=== PATIENT | male | born 1975 | race Caucasian/White ===

== ENCOUNTER 2016-12-22 21:29 | Emergency (ER) | payer SELFPAY ==
[2016-12-22 21:39] VITALS: BP 142/83; PULSE 100; RESP 20; TEMP 98.2; O2SAT 95
[2016-12-22] MEDS ORDERED: Albuterol-Ipratrop 3 mg / 0.5 (3 ml) UD INH STA ×2 (22:08)
--- NOTE | 2016-12-22 23:15 | ED PDOC ---
HPI: CCC, URI, Sore Throat Time Seen by Provider: 12/22/16 22:00 Chief Complaint (Nursing): Respiratory Distress Chief Complaint (Provider): cough History Per: Patient History/Exam Limitations: no limitations Have you had recent travel within the past 21 days to any of the following countries: [place], [place], [place] or [place]?: No Onset/Duration Of Symptoms: Days (3) Current Symptoms Are (Timing): Still Present Additional Complaint(s): 41yo male presents to the ED with c/o cough x3 days with associated chest tightness. Patient states he has pain in his chest when coughing and it keeps him up at night. Started on z-aneta today with no improvement of symptoms. Patient also has been using inhaler with no relief. Past Medical History Reviewed: Historical Data, Nursing Documentation, Vital Signs Vital Signs: Last Vital Signs Temp 98.2 F 12/22/16 21:36 Pulse 100 H 12/22/16 21:36 Resp 20 12/22/16 21:36 BP 142/83 12/22/16 21:36 Pulse Ox 95 12/23/16 00:31 - Medical History PMH: No Chronic Diseases - Surgical History Surgical History: No Surg Hx - Family History Family History: States: No Known Family Hx - Home Medications Home Medications: Ambulatory Orders Medication Instructions Recorded Dicyclomine [Bentyl] 10 mg PO QID PRN #20 cap 10/09/14 traMADol [Ultram] 50 mg PO QID PRN #20 tab 10/09/14 Guaifenesin [Mucus ER] 600 mg PO BID #16 tab.er.12h 12/23/16 predniSONE [predniSONE Tab] 60 mg PO DAILY #9 tab 12/23/16 - Allergies Allergies/Adverse Reactions: Allergies Allergy/AdvReac Type Severity Reaction Status Date / Time No Known Allergies Allergy Verified 10/09/14 17:20 Review of Systems ROS Statement: Except As Marked, All Systems Reviewed And Found Negative Cardiovascular: Positive for: Other (chest tightness ) Respiratory: Positive for: Cough Physical Exam - Reviewed Nursing Documentation Reviewed: Yes Vital Signs Reviewed: Yes - Physical Exam Appears: Positive for: Well, No Acute Distress Head Exam: Positive for: ATRAUMATIC, NORMAL INSPECTION, NORMOCEPHALIC Skin: Positive for: Normal Color, Warm, Dry Eye Exam: Positive for: Normal appearance, EOMI, PERRL ENT: Positive for: Normal ENT Inspection Neck: Positive for: Normal, Painless ROM, Supple Cardiovascular/Chest: Positive for: Regular Rate, Rhythm. Negative for: Murmur , Tachycardia Respiratory: Positive for: Normal Breath Sounds. Negative for: Wheezing, Respiratory Distress Gastrointestinal/Abdominal: Positive for: Normal Exam, Bowel Sounds, Soft. Negative for: Tenderness Back: Positive for: Normal Inspection. Negative for: L CVA Tenderness, R CVA Tenderness Extremity: Positive for: Normal ROM. Negative for: Deformity, Swelling Neurologic/Psych: Positive for: Alert, Oriented. Negative for: Motor/Sensory Deficits - ECG O2 Sat by Pulse Oximetry: 95 Pulse Ox Interpretation: Normal (RA) Medical Decision Making Medical Decision Makin: Impression: bronchospasm vs. pneumonia Plan: CXR duoneb 3ml INH x2, flexeril 10mg PO, motrin 600mg PO, prednisone 60mg PO reassess 0030: Patient feeling better and cough has improved. Will d/c at this time. Scribe Attestation: Documented by Nigel Wells acting as a scribe for Spencer Amador MD. Provider Scribe Attestation: All medical record entries made by the Scribe were at my direction and personally dictated by me. I have reviewed the chart and agree that the record accurately reflects my personal performance of the history, physical exam, medical decision making, and the department course for this patient. I have also personally directed, reviewed, and agree with the discharge instructions and disposition. Disposition - Clinical Impression Clinical Impression: Bronchospasm - Patient ED Disposition Is Patient to be Admitted: No - Disposition Referrals: [facility] [Outside] Disposition: Routine/Home Disposition Time: 00:31 Condition: IMPROVED Prescriptions: Guaifenesin [Mucus ER] 600 mg PO BID #16 tab.er.12h predniSONE [predniSONE Tab] 60 mg PO DAILY #9 tab Instructions: Acute Cough (ED) Print Language: MARTINIQUAIS
--- NOTE | 2016-12-23 10:33 | RAD ---
HISTORY: r/o PNA COMPARISON: No prior. FINDINGS: LUNGS: No active pulmonary disease. PLEURA: No significant pleural effusion identified, no pneumothorax apparent. CARDIOVASCULAR: No radiographic findings to suggest acute or significant cardiovascular disease. OSSEOUS STRUCTURES: No significant abnormalities. VISUALIZED UPPER ABDOMEN: Normal. OTHER FINDINGS: None. IMPRESSION: No active disease.
== END 2016-12-23 00:52 | disposition home or self-care (01) ==
LOC: H.ER 21:29
DX: J98.01 Acute bronchospasm (principal); R07.9 Chest pain, unspecified; R05 Cough

== ENCOUNTER 2017-12-14 17:35 | Emergency (ER) | payer SELFPAY ==
[2017-12-14 17:50] VITALS: O2SAT 99
[2017-12-14] MEDS ORDERED: Iohexol 240 (50 ml) PO ONE (18:24)
[2017-12-14] MEDS ORDERED: Sodium Chloride 0.9% 1,000 ML IV STA (18:24)
--- NOTE | 2017-12-14 18:25 | ED PDOC ---
HPI: Abdomen Time Seen by Provider: 12/14/17 18:00 Chief Complaint (Nursing): Abdominal Pain Chief Complaint (Provider): Abd pain History Per: Patient History/Exam Limitations: no limitations Onset/Duration Of Symptoms: Days (1 week) Current Symptoms Are (Timing): Still Present Additional Complaint(s): Pt. with abd pain left lower. Constant. No dysuria, weakness, testicular pain , nausea, vomit, diarrhea, new food or drinks. No back pain. Past Medical History Reviewed: Nursing Documentation, Vital Signs Vital Signs: Last Vital Signs Temp 97.8 F 12/14/17 17:46 Pulse 66 12/14/17 17:46 Resp 18 12/14/17 17:46 BP 135/63 12/14/17 17:46 Pulse Ox 99 12/14/17 18:46 - Medical History PMH: Asthma - Surgical History Surgical History: No Surg Hx - Family History Family History: States: Unknown Family Hx - Home Medications Home Medications: Ambulatory Orders Medication Instructions Recorded Dicyclomine [Bentyl] 10 mg PO QID PRN #20 cap 10/09/14 traMADol [Ultram] 50 mg PO QID PRN #20 tab 10/09/14 Guaifenesin [Mucus ER] 600 mg PO BID #16 tab.er.12h 12/23/16 predniSONE [predniSONE Tab] 60 mg PO DAILY #9 tab 12/23/16 Ibuprofen [Motrin] 600 mg PO TID 7 Days tab 12/14/17 - Allergies Allergies/Adverse Reactions: Allergies Allergy/AdvReac Type Severity Reaction Status Date / Time No Known Allergies Allergy Verified 10/09/14 17:20 Review of Systems ROS Statement: Except As Marked, All Systems Reviewed And Found Negative Gastrointestinal: Positive for: Abdominal Pain Physical Exam - Reviewed Nursing Documentation Reviewed: Yes - Physical Exam Appears: Positive for: Non-toxic, No Acute Distress Head Exam: Positive for: ATRAUMATIC, NORMAL INSPECTION, NORMOCEPHALIC Skin: Positive for: Normal Color, Warm, DRY Eye Exam: Positive for: EOMI, Normal appearance, PERRL ENT: Positive for: Normal ENT Inspection Neck: Positive for: Normal, Painless ROM Cardiovascular/Chest: Positive for: Regular Rate, Rhythm Respiratory: Positive for: CNT, Normal Breath Sounds Gastrointestinal/Abdominal: Positive for: Soft, Tenderness (LLQ) Back: Positive for: Normal Inspection. Negative for: L CVA Tenderness, R CVA Tenderness Extremity: Positive for: Normal ROM Neurologic/Psych: Positive for: Alert, Oriented - Laboratory Results Result Diagrams: 12/14/17 18:55 12/14/17 18:55 Interpretation Of Abn Labs: no acute - ECG O2 Sat by Pulse Oximetry: 99 - CT Scan/US ct Other Rad Studies (CT/US): Read By Radiologist Other Rad Interpretation: no acute - Progress ED Course And Treament: 2221: Stable. AAOx3. Pain free. Tolerated po. Fu with pcp. Disposition - Clinical Impression Clinical Impression: Abdominal pain, Diverticulosis - Patient ED Disposition Is Patient to be Admitted: No Counseled Patient/Family Regarding: Studies Performed, Diagnosis, Need For Followup, Rx Given - Disposition [facility]errals: [facility] [Outside] - 12/15/17 Disposition: Routine/Home Disposition Time: 22:22 Condition: STABLE Additional Instructions: Return if not better in 3 days. Prescriptions: Ibuprofen [Motrin] 600 mg PO TID 7 Days tab Instructions: Acute Abdomen (Belly Pain), Diverticulosis Print Language: SLOVENIAN
[2017-12-14] MEDS ORDERED: Iohexol 240 (50 ml) ONE (18:32)
[2017-12-14 19:07] LABS: BASO % 0.6 % (0.0-2.0); EOS # 0.3 K/uL (0.0-0.7); EOS % 3.9 % (0.0-4.0); HEMOGLOBIN 15.2 g/dL (12.0-18.0); LYMPH # 2.6 K/uL (1.0-4.3); LYMPH % 34.6 % (20.0-40.0); MEAN CORPUSCULAR HEMOGLOBIN 28.7 pg (27.0-31.0); MEAN CORPUSCULAR HGB CONC 33.4 g/dL (33.0-37.0); MEAN PLATELET VOLUME 11.4 fl (7.2-11.7); MONO # 0.6 K/uL (0.0-0.8); MONO % 7.5 % (0.0-10.0); NEUT % 53.4 % (50.0-75.0); NRBC % 0.2 % (0.0-0.0); RBC 5.28 Mil/uL (4.40-5.90); RED CELL DISTRIBUTION WIDTH 14.2 % (11.5-14.5); WHITE BLOOD COUNT 7.4 K/uL (4.8-10.8)
[2017-12-14 19:17] LABS: ALB/GLOB RATIO 1.1 (1.0-2.1); ALBUMIN 4.4 g/dL (3.5-5.0); ALT/SGPT 50 U/L (21-72); AST/SGOT 32 U/L (17-59); BLOOD UREA NITROGEN 23 mg/dl (9-20); CALCIUM 9.3 mg/dL (8.4-10.2); GFR AFRICAN-AMERICAN > 60; GFR NON-AFRICAN AMERICAN > 60
[2017-12-14] MEDS ORDERED: Iohexol 300 100 ML IJ ONE (19:33)
[2017-12-14] MEDS ORDERED: Sodium Chloride 0.9% 100 ML ONE (19:33)
[2017-12-14 22:58] VITALS: BP 122/72; PULSE 78; RESP 14; TEMP 98.3
--- NOTE | 2017-12-15 10:45 | CT ---
PROCEDURE: CT Abdomen and Pelvis with contrast HISTORY: Abdominal pain COMPARISON: None. TECHNIQUE: CT scan of the abdomen and pelvis was performed after administration of intravenous contrast. Oral contrast was administered. Coronal and sagittal reformatted images were obtained. Radiation dose: Total exam DLP = 861.52 mGy-cm. This CT exam was performed using one or more of the following dose reduction techniques: Automated exposure control, adjustment of the mA and/or kV according to patient size, and/or use of iterative reconstruction technique. FINDINGS: LOWER THORAX: The lung bases are clear. LIVER: There is mild hepatomegaly and diffuse fatty infiltration. No gross lesion or ductal dilatation. GALLBLADDER AND BILE DUCTS: No calcified gallstones. PANCREAS: Normal in size with homogeneous enhancement. No gross lesion or ductal dilatation. SPLEEN: Borderline splenomegaly ADRENALS: No discrete nodule. KIDNEYS AND URETERS: Both kidneys are normal in size with homogeneous enhancement. No hydronephrosis. No solid mass. VASCULATURE: No aortic aneurysm. BOWEL: The small bowel loops are normal in caliber. There is scattered colonic diverticulosis without CT evidence for acute diverticulitis. No bowel dilatation or obstruction. APPENDIX: Normal appendix. PERITONEUM: No free fluid. No free air. LYMPH NODES: No enlarged lymph nodes. BLADDER: Normal in appearance. REPRODUCTIVE: The prostate gland is normal in size. BONES: No acute fracture. Within normal limits for the patient's age. OTHER FINDINGS: None. IMPRESSION: No acute abdominal or pelvic abnormality. Colonic diverticulosis without CT evidence for acute diverticulitis. A preliminary report was provided by [employer].
== END 2017-12-14 22:59 | disposition home or self-care (01) ==
LOC: H.ER 17:35
DX: K57.30 Diverticulosis of large intestine without perforation or abscess without bleeding (principal)
CPT/HCPCS: 74177; 80053; 85025; 96374; 99282; J1885; J7040; Q9966; Q9967